=== PATIENT | male | born 1980 | race Two or more races ===

== ENCOUNTER 2025-04-28 09:40 | Emergency (ER) | payer OTHER ==
[~2025-04-28] VITALS: Ht 185.4 cm; Wt 99.8 kg
[2025-04-28 10:02] VITALS: BP 125/80; O2SAT 99
[2025-04-28] MEDS ORDERED: DIPHTH,PERTUSS(ACELL),TET VAC 0.5 ML SYRINGE IM ONE (10:23)
[2025-04-28] MEDS ORDERED: CEFTRIAXONE SODIUM 1,000 MG VIAL ONE (10:23)
[2025-04-28] MEDS ORDERED: LIDOCAINE HCL 1% 10ML VIAL ONE (10:23)
[2025-04-28] MEDS ORDERED: TETANUS & DIPHTHERIA TOX,ADULT 0.5 ML VIAL IM ONE (10:30)
[2025-04-28] MEDS ORDERED: LIDOCAINE HCL 1% 10ML VIAL PERCUT ONE (10:30)
[2025-04-28] MEDS ORDERED: CEFTRIAXONE SODIUM 1,000 MG VIAL IM ONE (10:30)
[2025-04-28] MEDS ORDERED: CEFUROXIME500 MG PO (10:47)
[2025-04-28] MEDS ORDERED: PEPCID AC20 MG PO (10:47)
== END 2025-04-28 10:55 | disposition home or self-care (01) ==
LOC: ER 09:40
DX: S01.02XA Laceration with foreign body of scalp, initial encounter (principal); W22.8XXA Striking against or struck by other objects, initial encounter; Y93.89 Activity, other specified; Y92.89 Other specified places as the place of occurrence of the external cause
CPT/HCPCS: 12002; 90471; 90714; J1670